=== PATIENT | female | born 1995 | race Two or more races ===

== ENCOUNTER 2017-12-03 17:57 | Emergency (ER) | payer MEDICAID ==
[~2017-12-03] VITALS: Ht 167.6 cm; Wt 55.3 kg
[2017-12-03 17:58] VITALS: BP 118/70
== END 2017-12-03 20:37 | disposition home or self-care (01) ==
LOC: ER 18:03
DX: R07.81 Pleurodynia (principal); J45.909 Unspecified asthma, uncomplicated; F41.9 Anxiety disorder, unspecified; F10.10 Alcohol abuse, uncomplicated; Y90.9 Presence of alcohol in blood, level not specified
CPT/HCPCS: 71100; 84703; 99285; A4606; A6402; Z7610

== ENCOUNTER 2019-12-24 07:35 | Emergency (ER) | payer MEDICAID, OTHER ==
[~2019-12-24] VITALS: Ht 165.1 cm; Wt 53.5 kg
--- NOTE | 2019-12-24 07:46 | NUR ---
patient came in to the er c/o nausea vomiting and body aches. On room air, breathing evenly and unlabored. connected to the monitor and pulse ox. kept comfortable, will continue to monitor accordingly.
[2019-12-24] MEDS ORDERED: ONDANSETRON HCL/PF 4 MG/2 ML VIAL ONE (07:54)
--- NOTE | 2019-12-24 07:58 | NUR ---
Line started on L ac g 18, blood drawn from line and sent to lab. Pt medicated as ordered
[2019-12-24] MEDS ORDERED: ONDANSETRON HCL/PF 4 MG/2 ML VIAL IVP ONE (08:00)
[2019-12-24] MEDS ORDERED: IV NS 0.9% 1,000 ML BAG IV ONE (08:00)
--- NOTE | 2019-12-24 08:00 | NUR ---
Urine collected via clean catch and sent to lab
[2019-12-24 08:27] LABS: BASOPHILS # (AUTO) 0.1 /CMM (0.0-0.2); BASOPHILS % (AUTO) 1.1 % (0.0-2.0); EOSINOPHILS % (AUTO) 2.3 % (0.0-6.0); HEMATOCRIT 39 % (33-45); HEMOGLOBIN 12.5 g/dL (11.5-14.8); LYMPHOCYTES # (AUTO) 1.3 /CMM (0.8-4.8); LYMPHOCYTES % (AUTO) 22.3 % (20.0-44.0); MEAN CORPUSCULAR HGB CONC 32 g/dl (31.0-36.0); MEAN CORPUSCULAR VOLUME 80 fL (82-100); MONOCYTES # (AUTO) 0.3 /CMM (0.1-1.30); MONOCYTES % (AUTO) 5.7 % (2.0-12.0); NEUTROPHILS # (AUTO) 4.1 /CMM (1.8-8.9); NEUTROPHILS % (AUTO) 68.6 % (43.0-81.0); PLATELET COUNT (AUTO) 254 /CMM (150-450); RED BLOOD CELL COUNT(AUTO) 4.86 MIL/uL (4.0-5.2); WHITE BLOOD COUNT (AUTO) 5.9 K/uL (4.3-11.0)
[2019-12-24 08:29] LABS: CALCIUM, SERUM 9.4 mg/dL (8.5-10.1); CREATININE 0.7 mg/dL (0.6-1.3); POTASSIUM 3.7 mmol/L (3.5-5.1)
[2019-12-24 08:31] LABS: APPEARANCE,URINE CLEAR (CLEAR); BILIRUBIN,URINE SMALL (NEGATIVE); BLOOD, URINE SMALL Ery/uL (NEGATIVE); COLOR,URINE YELLOW (YELLOW); KETONES,URINE 40 (NEGATIVE); LEUKOCYTE ESTERASE ,URINE NEGATIVE (NEGATIVE); NITRITE, URINE NEGATIVE (NEGATIVE); PROTEIN,URINE 30 mg/dl (NEGATIVE); UGLUCOSE NEGATIVE (NEGATIVE); UROBILINOGEN,URINE 0.2 EU/dL (0.2)
[2019-12-24 08:38] LABS: ALBUMIN 4.4 g/dL (3.4-5.0); BILIRUBIN,DIRECT 0.1 mg/dL (0.0-0.2); BILIRUBIN,TOTAL 0.4 mg/dL (0.2-1.0); TOTAL PROTEIN, SERUM 7.5 g/dL (6.4-8.2)
[2019-12-24 08:55] LABS: BACTERIA,URINE Moderate /HPF (None Seen); SQUAMOUS EPITHELIAL CELL,UR Moderate /HPF (None Seen)
[2019-12-24 09:01] VITALS: BP 135/71
--- NOTE | 2019-12-24 09:02 | NUR ---
Patient discharged to home in stable condition. Written and verbal after care instructions given. Patient verbalizes understanding of instruction.IV removed. Catheter intact and site benign. Pressure and 4x4 applied to site. No bleeding noted.
== END 2019-12-24 09:02 | disposition home or self-care (01) ==
LOC: ER 07:44
DX: R11.2 Nausea with vomiting, unspecified (principal); F11.10 Opioid abuse, uncomplicated; J45.909 Unspecified asthma, uncomplicated; F41.9 Anxiety disorder, unspecified
CPT/HCPCS: 36415; 71045; 80048; 80076; 81001; 83690; 84703; 85025; 87086; 96361; 96374; 99284; J2405; J7030; 81000-TC